=== PATIENT | male | born 1940 | race Caucasian/White ===

== ENCOUNTER 2021-11-28 14:06 | Emergency (ER) | payer OTHER ==
[~2021-11-28] VITALS: Ht 165.1 cm; Wt 72.6 kg
[~2021-11-28 14:06] MED LIST: ASPI-524 PO; INSU100V26 SQ; INSU100V9 SQ; LISI40TA13 PO; LOVA20TA2 PO; METF-381 PO
[2021-11-28 14:44] VITALS: BP_SYST 133
--- NOTE | 2021-11-28 14:44 | NUR ---
Pt triaged and placed in waiting room pending bed availability.
--- NOTE | 2021-11-28 14:44 | NUR ---
Pt here from home reporting using a "grinder brake lining;" sustained L FA lac. Covered with dry dressing SANITOR. Pt alert and oriented x 3 upon face to face assessment. Ambulates with steady gait. Minimal pain to FA reported; pain 3/10. Pending imaging and suturing.
[2021-11-28] MEDS ORDERED: LIDOCAINE/EPI 1% 1:100000 20 ML VIAL INJ ONE (14:45)
--- NOTE | 2021-11-28 14:45 | NUR ---
Pt walked ambulatory to radiology
--- NOTE | 2021-11-28 15:00 | NUR ---
Patient to ER bed H1 for evaluation. Side rails up. Report given to Vin CASTRO.
--- NOTE | 2021-11-28 15:10 | NUR ---
ER Dr. Whitfield at bedside examining patient.
[2021-11-28] MEDS ORDERED: BACITRACIN 1 GM OINT TP ONE (15:43)
[2021-11-28] MEDS ORDERED: BACITRACIN ZINC 15 GM TOPICAL OINTMENT TP SCH (15:45)
--- NOTE | 2021-11-28 16:00 | NUR ---
Patient given written and verbal discharge instructions and verbalizes understanding. ER MD discussed with patient the results and treatment provided. Patient in stable condition. ID arm band removed. Patient educated on pain management and to follow up with PMD. Pain scale 2/10. Opportunity for questions provided and answered.
[2021-11-28] MEDS ORDERED: DIPH-TET-PERTUS Vaccine 0.5 ML VIAL (ADACEL) I.M. ONE (16:15)
== END 2021-11-28 16:27 | disposition home or self-care (01) ==
LOC: SED 14:06
DX: S51.812A Laceration without foreign body of left forearm, initial encounter (principal); M79.632 Pain in left forearm; E11.9 Type 2 diabetes mellitus without complications; I10 Essential (primary) hypertension; Z79.84 Long term (current) use of oral hypoglycemic drugs; Z79.899 Other long term (current) drug therapy; W31.2XXA Contact with powered woodworking and forming machines, initial encounter; Y93.89 Activity, other specified; Y92.89 Other specified places as the place of occurrence of the external cause; Y99.8 Other external cause status
CPT/HCPCS: 73090; 90715; 99283